=== PATIENT | female | born 1970 | race Caucasian/White ===

== ENCOUNTER → 2019-10-19 | Outpatient (CLI) | payer MEDICARE ==
[~2019-10-19] MED LIST: IOPAMIDOL 300MG/ML 100 ML INFUS..BTL IV ONE
--- NOTE | 2019-10-19 15:00 | Diagnostic Imaging Report ---
PROCEDURE: Diagnostic venography Procedural Personnel Attending physician(s): Irene Wilburn MD Fellow physician(s): None Resident physician(s): None Advanced practice provider(s): None Pre-procedure diagnosis: ESRD Post-procedure diagnosis: Same Indication: Mapping for AV fistula Additional clinical history: None Complications: No immediate complications. IMPRESSION: Diagnostic venography demonstrates widely patent central veins and patent brachial, basilic, and cephalic veins of both upper extremities. The right upper extremity veins are larger in caliber relative to the left. PROCEDURE SUMMARY: - Venous access with ultrasound guidance - Selective venography as described below - Additional procedure(s): None PROCEDURE DETAILS: Pre-procedure Consent: Informed consent for the procedure including risks, benefits and alternatives was obtained and time-out was performed prior to the procedure. Preparation: The site was prepared and draped using maximal sterile barrier technique including cutaneous antisepsis. Anesthesia/sedation Level of anesthesia/sedation: No sedation Anesthesia/sedation administered by: Independent trained observer under attending supervision with continuous monitoring of the patient?s level of consciousness and physiologic status Total intra-service sedation time (minutes): NA Access IV access was established in the right and left hand prior to venography. Venography Contrast injection of 20cc Isovue 370 from each hand IV, chased by 10cc NS for central venogram. Contrast Contrast agent: Isovue 370 Contrast volume (mL): 40 Radiation Dose Fluoroscopy time (minutes): 2.1 Reference air kerma (mGy): 10.8 Additional Details Additional description of procedure: None Equipment details: None Specimens removed: None Estimated blood loss (mL): Less than 10 Standardized report: [email or web address] Attestation Signer name: Irene Wilburn MD I attest that I was present for the entire procedure. I reviewed the stored images and agree with the report as written. Signed by: Irene Wilburn MD on 10/19/2019 2:57 PM
== END ==
LOC: DX 08:22
PROVIDERS: ATTEND Surgery
DX: N18.6 End stage renal disease (principal)
CPT/HCPCS: 75822; Q9967